=== PATIENT | male | born 2000 | race Two or more races ===

== ENCOUNTER 2021-05-04 14:02 | Emergency (ER) | payer OTHER, SELFPAY ==
[2021-05-04 15:40] VITALS: BP 137/72; PULSE 96; RESP 20; TEMP 36.7; O2SAT 99; BMI 35.4
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
[2021-05-04 17:28] VITALS: BP 137/72; PULSE 96; RESP 20; TEMP 36.7; O2SAT 99
== END 2021-05-04 17:48 | disposition home or self-care (01) ==
PROVIDERS: Emergency Provider Nurse Practitioner
DX: S70.02XA Contusion of left hip, initial encounter (principal); S80.02XA Contusion of left knee, initial encounter; S63.91XA Sprain of unspecified part of right wrist and hand, initial encounter; V86.55XA Driver of 3- or 4- wheeled all-terrain vehicle (ATV) injured in nontraffic accident, initial encounter; Y92.89 Other specified places as the place of occurrence of the external cause
CPT/HCPCS: 29125; 72170; 73130; 73502; 73562; 99202; G0463

== ENCOUNTER 2022-12-24 17:53 | Emergency (ER) | payer OTHER, SELFPAY ==
[2022-12-24 17:56] VITALS: BP 136/84; PULSE 100; RESP 16; TEMP 36.8; O2SAT 99; BMI 34.0
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
[2022-12-24 19:27] VITALS: BP 134/79; PULSE 87; RESP 17; TEMP 36.7; O2SAT 96
== END 2022-12-24 19:28 | disposition home or self-care (01) ==
PROVIDERS: Emergency Provider Emergency Medicine
DX: Q64.4 Malformation of urachus (principal); R10.33 Periumbilical pain
CPT/HCPCS: 87070; 87205; 99283